=== PATIENT | male | born 1955 | race Caucasian/White ===

== ENCOUNTER 2020-01-21 19:36 | Observation (INO) | payer OTHER, SELFPAY ==
[2020-01-21 19:37] VITALS: BP 156/98; PULSE 70; RESP 16; TEMP 36.6; O2SAT 98; BMI 30.7
--- NOTE | 2020-01-21 20:24 | CT_ITS ---
STUDY: CT ABDOMEN AND PELVIS WITHOUT CONTRAST REASON FOR EXAM: Male, 64 years old. Left flank pain RADIATION DOSAGE (If Supplied By Facility): CTDIvol = ( 16.81 ) mGy, DLP = ( 982.68 ) mGycm TECHNIQUE: Transaxial images were obtained from the dome of the diaphragm to the symphysis pubis without oral contrast, and without intravenous contrast. Sagittal and coronal images were reconstructed. Individualized dose optimization techniques were used for this CT. COMPARISON: None. FINDINGS: Evaluation of the abdominal viscera is limited in the absence of intravenous contrast. There is atelectasis at the lung bases. The visualized portions of the heart and pericardium are within normal limits. There are no calcified gallstones present. The liver is low in density, consistent with fatty infiltration. The spleen is normal in size. The pancreas demonstrates an unremarkable unenhanced appearance. The adrenal glands are within normal limits. There is a 5 mm stone in the left mid ureter with severe left hydronephrosis. There are bilateral subcentimeter nonobstructing renal collecting system stones. There are multiple cystic structures in the right renal hilum which likely represent parapelvic cysts. However, right-sided hydronephrosis cannot be excluded without a contrast-enhanced study and delayed images. Normal visualized stomach. There is no bowel obstruction or inflammation. The appendix is not visualized, but there are no findings to suggest acute appendicitis. The aorta is normal in caliber. There are atherosclerotic calcifications noted in the aorta and its branches. There is no abdominal or pelvic free air, free fluid, fluid collection or lymphadenopathy. There are no destructive osseous lesions. There are degenerative changes noted in the spine. CT/Abdomen/Pelvis without Cont IMPRESSION: 5 mm stone in the left mid ureter with severe left hydronephrosis. Multiple cystic structures in the right renal hilum which likely represent parapelvic cysts. However, right-sided hydronephrosis cannot be excluded without a contrast-enhanced study and delayed images. Fatty liver. Electronically Signed: Piotr Mccormick, at 21:03 EDT Tel , Service support ,
[2020-01-21 20:32] LABS: Absolute Lymphocyte Count 2.14 X10^3/uL (0.83-4.51); Absolute Neutrophil Count 9.7 X10^3/uL (2.0-7.7); Basophil# 0.05 X10^3/uL; Basophil% 0.4 % (0-1); Eosinophil# 0.49 X10^3/uL; Eosinophils% 3.6 % (0-5); Hematocrit 49.5 % (40-54); Hemoglobin 17.4 g/dL (13.0-16.5); Lymphocyte # 2.14 X10^3/ul (4.0); Lymphocyte % 15.7 % (19-41); Mean Corp Hgb Conc 35.2 g/dL (32-36); Mean Corpuscular Hgb 35.4 pg (27.0-32.0); Mean Corpuscular Volume 100.6 fL (80-94); Mean Platelet Vol. 11.8 fl (6.2-12.0); Monocyte# 1.21 X10^3/uL; Monocyte% 8.9 % (0-10); NRBC Flagged by Analyzer 0 % (0-5); Neutrophil # 9.72 X10^3/uL (2.7-7.7); Platelet Count 237 K/mm3 (150-450); RBC Distribution Width CV 13.2 % (11.6-14.6); RBC Distribution Width SD 48.4 fl (35.1-43.9); Red Blood Count 4.92 M/mm3 (4.6-6.2); White Blood Count 13.7 K/mm3 (4.4-11.0)
[2020-01-21] MEDS: 0.9% Normal Saline 1,000 ML 250 ML IV (20:32)
[2020-01-21] MEDS: Morphine 4 MG/ML Syringe IV (20:32)
[2020-01-21] MEDS: Ondansetron 4 MG/2 ML Vial IV (20:32)
[2020-01-21 20:34] LABS: Bacteria 0 SEEN /hpf (None Seen); Mucous, Urine 0 SEEN /hpf (<or=2+); Red Blood Cells-Urine 0 SEEN /hpf (0-5); Squamous Epithelial Cells - UA 0 SEEN /hpf (0-5); White Blood Cells 0 SEEN /hpf (0-5)
[2020-01-21 20:36] LABS: Color, Urine Yellow (Yellow); Glucose, Dipstick Normal (Normal); Ketone-Dipstick Negative (Negative); Leukocyte Esterase-Dipstick Negative /ul (Negative); Nitrite-Dipstick Negative (Negative); Occult Blood-Urine 25 /ul (Negative); Protein-Dipstick Negative (Negative); Specific Gravity, Urine 1.005 (1.002-1.030); Urine Bilirubin Dipstick Negative (Negative); Urine Clarity Clear (Clear); Urine Urobilinogen Normal (Normal)
[2020-01-21 20:43] LABS: Anion Gap 8 (5-15); BUN 15 mg/dL (7-18); BUN/Creat Ratio 10.5 RATIO (10-20); Calcium,Total 9.8 mg/dL (8.5-10.1); Chloride 102 mmol/L (98-107); Creatinine, Serum 1.43 mg/dL (0.70-1.30); EST Glomerular Filtration Rate 53 mL/min (>60); Est Glom Filt Rate - Afr Amer 64 mL/min (>60); Estimated Creatinine Clearance 55.58 ml/min; Glucose 99 mg/dL (74-106); Potassium 4.7 mmol/L (3.5-5.1); Sodium Level 136 mmol/L (136-145)
--- NOTE | 2020-01-21 21:30 | ED.DCSUM_ITS ---
History of Present Illness Chief Complaint: Flank Pain Informant: Patient Onset: Today Context: Gradual Onset Timing: Continuous, Waxes and wanes Narrative: Patient is a 64-year-old male with history of kidney stones requiring lithotripsy, hyperlipidemia, gout and [id number] diabetes mellitus presenting with left-sided flank pain. Patient states that started today. He states it is constant but wax and wanes in intensity. He states it is in his left flank but radiates to his abdomen. Started on 1 PM today. Feels like his prior kidney stones. He took Tylenol at 1 PM with no significant relief of his symptoms. He has associated nausea but no vomiting. He has been trying to drink more water to help with his symptoms. Patient denies any other complaints at this time. Past Medical History - Allergies and Home Meds Allergies/Adverse Reactions: Allergies No Known Allergies Allergy (Verified 01/21/20 19:37) Past Medical History: - - Diabetes mellitus, hyperlipidemia, gout, kidney stones, history of renal cyst Surgical History: - - Lithotripsy with stent Smoking Status: Never smoker - Family History Maternal Family History: Reports: No pertinent history Review of Systems General: Denies: Chills, Fever, Sweats Eyes: Denies: Visual changes - bilaterally, Diplopia ENT: Denies: Rhinorrhea, Sore throat Cardiovascular: Denies: Chest pain, Palpitations Respiratory: Denies: Dyspnea, Cough, Dyspnea on exertion Gastrointestinal: Reports: Abdominal pain - Left flank, Nausea. Denies: Vomiting, Diarrhea, Melena, Hematochezia Genitourinary: Denies: Dysuria, Hematuria, Frequency Musculoskeletal: Denies: Back pain, Extremity Pain Skin: Denies: Rash, Wounds Neurological: Denies: Headache, Weakness, Numbness Physical Exam Vital Signs/Narrative: Vital Signs Temp Pulse Resp BP Pulse Ox 01/21/20 19:37 97.8 F 70 16 156/98 H 98 Inital Vital Signs reviewed: Yes General: Well nourished, Well developed, No Acute Distress Head: Normocephalic, Atraumatic Eyes: Perrl, EOMI ENT: Moist mucous membranes, No rhinorrhea Neck: Supple, Nontender Cardiovascular: Regular rate, Regular rhythm, No murmurs Respiratory: No distress, CTA bilaterally, Chest nontender Abdomen: Soft, Nontender, Nondistended, Normal bowel sounds. Negative for: Guarding, Rebound tenderness Back: Nontender, Normal Inspection. Negative for: CVA tenderness, Spinal tenderness Extremities: Nontender, No edema Skin: Normal color, No rash Neurological: Alert, Oriented x3, Cranial nerves II-XII grossly intact, Normal Strength, Normal Sensation Psychological: Normal affect, Normal Mood Diagnostic/Tx/Re-eval Clinical Impression(s) from Imaging Studies Abdomen/Pelvis CT 01/21/20 20:24 IMPRESSION: 5 mm stone in the left mid ureter with severe left hydronephrosis. Multiple cystic structures in the right renal hilum which likely represent parapelvic cysts. However, right-sided hydronephrosis cannot be excluded without a contrast-enhanced study and delayed images. Fatty liver. Electronically Signed: Piotr Damonlaura, at 21:03 EDT Tel , Service support , Laboratory Data 01/21/20 01/21/20 01/21/20 19:50 19:50 19:50 WBC 13.7 H RBC 4.92 Hgb 17.4 H Hct 49.5 MCV 100.6 H MCH 35.4 H MCHC 35.2 RDW Std Deviation 48.4 H RDW Coeff of Teresita 13.2 Plt Count 237 MPV 11.8 Immature Gran % (Auto) 0.400 Neut % (Auto) 71.0 H Lymph % (Auto) 15.7 L [place] % (Auto) 8.9 Eos % (Auto) 3.6 Baso % (Auto) 0.4 Absolute Neuts (auto) 9.7 H Absolute Lymphs (auto) 2.14 Nucleated RBC % 0 Sodium 136 Potassium 4.7 Chloride 102 Carbon Dioxide 26.0 Anion Gap 8 BUN 15 Creatinine 1.43 H Estim Creat Clear Calc 55.58 Est GFR (MDRD) Af Amer 64 Est GFR (MDRD) Non-Af 53 L BUN/Creatinine Ratio 10.5 Glucose 99 Calcium 9.8 Urine Color Yellow Urine Clarity Clear Urine pH 6.0 Ur Specific [place] 1.005 Urine Protein Negative Urine Glucose (UA) Normal Urine Ketones Negative Urine Occult Blood 25 H Urine Nitrite Negative Urine Bilirubin Negative Urine Urobilinogen Normal Ur Leukocyte Esterase Negative Urine RBC 0 SEEN Urine WBC 0 SEEN Ur Squamous Epith Cells 0 SEEN Urine Bacteria 0 SEEN Urine Mucus 0 SEEN - Medical Decision Making Patient is evaluated for 1 day of left-sided flank pain. He appears nontoxic and is hemodynamically stable. Physical exam is quite benign. Patient's creatinine is mildly elevated at 1.43 and he has a leukocytosis of 13.7 as well as a hemoglobin of 17.4. Patient is given IV fluids and, morphine and Zofran in the emergency room. Patient is not given Toradol as he is already on daily meloxicam and took a dose of that today. Patient's creatinine does seem to be above his baseline. His lab work in the fall had a creatinine of 0.98 per his [employer] nacho. Patient also was found to have significant hydronephrosis on the left side. Even his severe hydronephrosis as well as his DANIEL I do believe patient benefit from admission. Case is discussed with urology on-call, Dr. Cintron who accepts admission. Patient is agreeable with plan. He is given Percocet in the ER for further pain control. ED Disposition - Plan for ED Patient: Disposition: Acute Care Hospital [facility] Diagnosis: Acute renal insufficiency, Hydronephrosis, left, Left ureteral calculus
[2020-01-21 21:41] VITALS: BP 145/87; PULSE 68; RESP 16; TEMP 36.6; O2SAT 98
--- NOTE | 2020-01-21 21:48 | HP.PCM_ITS ---
Problem List (1) Left ureteral calculus Status: Acute Comment: 5mm stone in proximal ureter (2) Hydronephrosis, left Status: Acute Comment: hydro, high grade obstruction (3) Acute renal insufficiency Status: Acute Comment: acute worsning of renal funciton. History of Present Illness Date of Admission: 01/21/20 Chief Complaint: left flank pain The patient is a 64 year old male presented with ER with obstruction from a left kidney stone will admit for pain control, + flank pain, Creatinine rising because of blockage. no fevers or chills WBC slighly up, but no signs of sepsis, vitals stable. Past Medical History Allergies No Known Allergies Allergy (Verified 01/21/20 19:37) Surgical History: no surgical history, - - Lithotripsy with stent Psychiatric History: No pertinent psych hx Lives: With Family Smoking Status: Never smoker Tobacco Use: Non-smoker Alcohol: None Drugs: None - *Family History Maternal History Items: No pertinent history Review of Systems Constitutional: Denies: Chills, Fever, Weight Change HEENT: Denies: Head Aches, Sinus Congestion, Sinus Drainage Cardiovascular: Denies: Chest Pain, Palpitations Respiratory: Denies: Cough, Shortness of breath at rest, Sputum production Gastrointestinal: Reports: Abdominal Pain. Denies: Nausea, Vomiting Genitourinary: Reports: Hematuria. Denies: Dysuria Musculoskeletal: Denies: Joint Pain, Joint Tenderness Skin: Denies: Rash, Wounds Neurological: Denies: Numbness, Tingling, Focal weakness Psychiatric: Denies: Anxiety, Depression, Homicidal Ideations, Suicidal Ideations Hematologic/ Lymphatic: Denies: Easy Bruising, Easy Bleeding VTE Information - Inpt Only VTE Present on Admission: No VTE Mechan Device Prophylaxis: SCD's Patient Problems: Active and Suspected Problems Left ureteral calculus (Acute) 5mm stone in proximal ureter Hydronephrosis, left (Acute) hydro, high grade obstruction Acute renal insufficiency (Acute) acute worsning of renal funciton. - Physical Exam Vitals/I&O's: Vital Signs Temp Pulse Resp BP Pulse Ox 97.8 F 70 16 156/98 H 98 01/21/20 19:37 01/21/20 19:37 01/21/20 19:37 01/21/20 19:37 01/21/20 19:37 Oxygen Delivery Method Room Air Weight: 99.79 kg Body Mass Index (BMI) 30.7 General: Alert, Oriented x3, Cooperative HEENT: Atraumatic, PERRLA, EOMI, Normocephalic Neck: Supple, No JVD, Negative Carotid Bruits Lungs: Clear to auscultation, Normal air movement Cardiovascular: Regular rate, No murmurs Abdomen: Bowel Sounds Present, Soft, Non Tender Extremities: No edema, Capillary Refill Less than 3 Seconds Skin: No rashes, No breakdown Musculoskeletal: No Tenderness to Palpation of Joints or Extremities Neurological: Cranial nerves II-XII grossly intact Psych/Mental Status: Normal Affect, Appropriate Laboratory Results 01/21/20 19:50: WBC 13.7 H, RBC 4.92, Hgb 17.4 H, Hct 49.5, MCV 100.6 H, MCH 35.4 H, MCHC 35.2, RDW Std Deviation 48.4 H, RDW Coeff of Teresita 13.2, Plt Count 237, MPV 11.8, Immature Gran % (Auto) 0.400, Neut % (Auto) 71.0 H, Lymph % (Auto) 15.7 L, [place] % (Auto) 8.9, Eos % (Auto) 3.6, Baso % (Auto) 0.4, Absolute Neuts (auto) 9.7 H, Absolute Lymphs (auto) 2.14, Nucleated RBC % 0 01/21/20 19:50: Sodium 136, Potassium 4.7, Chloride 102, Carbon Dioxide 26.0, Anion Gap 8, BUN 15, Creatinine 1.43 H, Estim Creat Clear Calc 55.58, Est GFR (M DRD) Af Amer 64, Est GFR (MDRD) Non-Af 53 L, BUN/Creatinine Ratio 10.5, Glucose 99, Calcium 9.8 01/21/20 19:50: Urine Color Yellow, Urine Clarity Clear, Urine pH 6.0, Ur Specific [place] 1.005, Urine Protein Negative, Urine Glucose (UA) Normal, Urine Ketones Negative, Urine Occult Blood 25 H, Urine Nitrite Negative, Urine B ilirubin Negative, Urine Urobilinogen Normal, Ur Leukocyte Esterase Negative, Urine RBC 0 SEEN, Urine WBC 0 SEEN, Ur Squamous Epith Cells 0 SEEN, Urine Bacteria 0 SEEN, Urine Mucus 0 SEEN Current Medications Al Hydroxide/Mg Hydroxide (Mylanta Ii) 30 ml PO Q6H PRN PRN PRN Reason: Gastric Burning Dextrose (D50w Syringe) 0 gm IV X1 PRN; Protocol PRN Reason: Hypoglycemia Famotidine (Pepcid) 20 mg PO BID JOELLEN Glucagon () 1 mg IM .X1 PRN PRN Reason: Hypoglycemia Hydromorphone HCl (Dilaudid Inj) 0.5 mg IV Q4H PRN PRN PRN Reason: Pain Score 6-10/10 Sodium Chloride () 1,000 mls @ 250 mls/hr IV .Q4H [facility] Last Admin: 01/21/20 20:32 Dose: 250 mls/hr Documented by: Sodium Chloride () 1,000 mls @ 125 mls/hr IV .Q8H [facility] Cefazolin Sodium () 1 gm in 50 mls @ 100 mls/hr IV Q8 [facility] Stop: 01/26/20 22:01 Ondansetron HCl (Zofran) 4 mg IV Q8H PRN PRN PRN Reason: NAUSEA/VOMITING Oxycodone HCl (Oxyir) 10 mg PO Q4H PRN PRN PRN Reason: Pain Score 4-5/10 Prochlorperazine Edisylate (Compazine Iv) 5 mg IV Q4H PRN PRN PRN Reason: Breakthrough nausea/vomiting Temazepam (Restoril) 15 mg PO QHS PRN PRN PRN Reason: INSOMNIA Assessment/Plan All Active Problems Left ureteral calculus (Acute) Hydronephrosis, left (Acute) Acute renal insufficiency (Acute) admit to hospital pain control NPO at midnight hold all meds for now KUB in am plan for stent and ESWL.
[2020-01-21] MEDS: oxyCODONE 5 MG Tablet PO (21:56)
[2020-01-21 22:45] VITALS: BP 137/74; PULSE 73; RESP 18; TEMP 36.8; O2SAT 97
[2020-01-21 22:59] VITALS: BMI 30.7; BMI 31.6
[2020-01-21] MEDS: 0.9% Normal Saline 1,000 ML 125 ML IV (23:22)
[2020-01-21] MEDS: Famotidine 20 MG Tablet PO (23:32)
[2020-01-22] VITALS (7 sets, daily range): BP systolic 102–150; BP diastolic 65–93; PULSE 51–74; RESP 16–18; TEMP 36.3–36.7; O2SAT 93–98; BMI 31.4; BMI 30.7
[2020-01-22] MEDS: Cefazolin 1 GM/50 ML BAG IV ×3 (00:07→13:55)
[2020-01-22] MEDS: oxyCODONE 5 MG Tablet 10 MG PO (01:09)
--- NOTE | 2020-01-22 05:55 | EKG12_ITS ---
Test Reason : PRE-OP Blood Pressure : / mmHG Vent. Rate : 051 BPM Atrial Rate : 051 BPM P-R Int : 176 ms QRS Dur : 096 ms QT Int : 438 ms P-R-T Axes : 049 014 035 degrees QTc Int : 403 ms Sinus bradycardia Nonspecific T wave abnormality Abnormal ECG No previous ECGs available Confirmed by ANNY BERMUDEZ, KRISTIAN ([id number]), map editor BLUE HO ([id number]) on 01/27/2020 9:55:48 AM Referred By: Francis Figueredo Confirmed By:CODY MCCORMICK MD
[2020-01-22 06:30] LABS: Bedside Glucose 121 mg/dL (70-110)
[2020-01-22 06:54] LABS: Absolute Lymphocyte Count 1.52 X10^3/uL (0.83-4.51); Absolute Neutrophil Count 5.4 X10^3/uL (2.0-7.7); Basophil# 0.03 X10^3/uL; Basophil% 0.4 % (0-1); Eosinophil# 0.36 X10^3/uL; Eosinophils% 4.4 % (0-5); Hematocrit 45.6 % (40-54); Hemoglobin 15.5 g/dL (13.0-16.5); Lymphocyte # 1.52 X10^3/ul (4.0); Lymphocyte % 18.4 % (19-41); Mean Corpuscular Hgb 35.1 pg (27.0-32.0); Mean Corpuscular Volume 103.2 fL (80-94); Mean Platelet Vol. 9.9 fl (6.2-12.0); Monocyte% 10.9 % (0-10); NRBC Flagged by Analyzer 0 % (0-5); Neutrophil # 5.41 X10^3/uL (2.7-7.7); Neutrophil % 65.7 % (47-70); Platelet Count 181 K/mm3 (150-450); RBC Distribution Width CV 13.4 % (11.6-14.6); RBC Distribution Width SD 51.2 fl (35.1-43.9); Red Blood Count 4.42 M/mm3 (4.6-6.2); White Blood Count 8.2 K/mm3 (4.4-11.0)
--- NOTE | 2020-01-22 07:00 | RAD_ITS ---
STUDY: X-RAY - ABDOMEN/PELVIS REASON FOR EXAM: Male, 64 years old. Abdomen and TECHNIQUE: Two AP supine views of the abdomen and pelvis. COMPARISON: None. FINDINGS: Normal visualized lung bases. There is an unremarkable bowel gas pattern. There is no demonstrated free abdominal air. The visualized liver, spleen and kidneys are grossly normal in size and morphology. Normal soft tissue structures. There are diffuse degenerative changes of the visualized lumbar spine. RAD/Abdomen Single View IMPRESSION: Normal x-ray examination of the abdomen and pelvis. Electronically Signed: Apple Grubbs, at 7:58 EDT Tel , Service support ,
[2020-01-22 07:19] LABS: Anion Gap 7 (5-15); BUN 12 mg/dL (7-18); BUN/Creat Ratio 10.5 RATIO (10-20); Calcium,Total 8.8 mg/dL (8.5-10.1); Chloride 102 mmol/L (98-107); Creatinine, Serum 1.14 mg/dL (0.70-1.30); EST Glomerular Filtration Rate 69 mL/min (>60); Est Glom Filt Rate - Afr Amer 83 mL/min (>60); Estimated Creatinine Clearance 69.72 ml/min; Glucose 120 mg/dL (74-106); Potassium 4.2 mmol/L (3.5-5.1); Sodium Level 135 mmol/L (136-145)
[2020-01-22] MEDS: 0.9% Saline Lock 10 ML Syringe IV (07:19)
[2020-01-22] MEDS: Ondansetron 4 MG/2 ML Vial IV (07:19)
[2020-01-22 07:59] LABS: Hemoglobin A1c 5.7 % (3.8-5.6)
[2020-01-22] MEDS: 0.9% Normal Saline 1,000 ML 125 ML IV ×2 (09:04→17:29)
[2020-01-22 11:10] LABS: Bedside Glucose 113 mg/dL (70-110)
--- NOTE | 2020-01-22 15:01 | PCM.DC.URO ---
Discharge Diet: No Restrictions, Light diet - advance as tolerated Discharge Activity: Return to Normal Activity, May Not Drive - for 2 days., May not drive while taking narcotic pain medications. Additional Activity Instructions:: Please be aware that pain medications may cause nausea. You should typically eat light foods as you take your pain medication. Pain medication may cause constipation, if this is a problem for you, please discuss with your doctor. Instructions: Shock Wave Lithotripsy Allergies/Adverse Reactions: Allergies No Known Allergies Allergy (Verified 01/21/20 19:37) Medications to take at Discharge Allopurinol 300 mg PO DAILY 01/21/20 Atorvastatin Calcium 10 mg PO DAILY 01/21/20 Docusate Sodium [Colace] 200 mg PO BID 01/21/20 Loratadine 10 mg PO DAILY 01/21/20 Meloxicam 15 mg PO DAILY 01/21/20 metFORMIN HCl [Glucophage] 500 mg PO TID 01/21/20 Cephalexin [Keflex] 500 mg PO TID #15 cap 01/22/20 Hydrocodone/Acetaminophen [Post 5-325 Tablet] 1 each PO Q4H PRN PRN 5 Days #14 tablet 01/22/20 The following prescriptions were given: Cephalexin [Keflex] 500 mg PO TID #15 cap Transmission Status: Pending to [facility] [id number] Hydrocodone/Acetaminophen [Post 5-325 Tablet] 1 each PO Q4H PRN PRN 5 Days #14 tablet PRN Reason: Pain Score 1-10/10 Transmission Status: Received by [facility] [address] [place] [address] Primary Care Physician: Kita Melendez MD [Primary Care Provider] - Test Results: Test results from this visit will be discussed in further detail at your follow-up appointment, if applicable. Please Follow Up With: Francis Figueredo MD - [phone] When: please call to make an appointment.
[2020-01-22] MEDS: Lactated Ringers 1,000 ML 100 ML IV (16:00)
--- NOTE | 2020-01-22 16:06 | PCM.OPRPT ---
Problem List (1) Left ureteral calculus Status: Acute Comment: 5mm stone in proximal ureter (2) Hydronephrosis, left Status: Acute Comment: hydro, high grade obstruction (3) Acute renal insufficiency Status: Acute Comment: acute worsning of renal funciton. Report of Operation Date of Procedure: 01/22/20 Pre-Operative Diagnosis: Left proximal ureteral calculi Post-Operative Diagnosis: Same Surgery/Procedure Performed:: Cystoscopy left stent placement and left extracorporeal shockwave lithotripsy Description of Surgical Findings:: 64-year-old male presents the hospital with obstructing stone in the proximal left ureter and admitted to hospital for pain control he is now taken to surgery today for treatment of the stone and also can place a stent. After induction of anesthesia he was placed supine on the table in dorsolithotomy position we found the stone in the lower pole of the left kidney had migrated back performed a retrograde pyelogram could see no stone along the course of the ureter we did go into the bladder with the cystoscope we cannulated the left ureteral orifice advanced a wire up into the kidney over the wire place a stent that we located the stone in the lower pole the left kidney. The stone had moved back from the proximal ureter back to the kidney. We then treated the stone with shockwave lithotripsy 3000 shockwaves were delivered to the stone at a rate of 90/min from 5 to 7 kV we monitor the stone during the treatment at the end of the treatment cycle appeared to be a complete fragmentation. Plan to see him next week with an x-ray and will get the stent out. Type of Anesthesia:: General Drains: stent left side - Admit VTE Documentation VTE Present on Admission: No VTE Mechan Device Prophylaxis: SCD's
[2020-01-22 16:45] LABS: Bedside Glucose 77 mg/dL (70-110)
== END 2020-01-22 18:53 | disposition home or self-care (01) ==
LOC: ED 20:22 → MS3 23:23
PROVIDERS: Anesthesiology; Admitting Provider Urology; Emergency Provider Emergency Medicine; PCP Internal Medicine; Referring Provider Urology; Visit Provider Urology
PROC: (CPT 50590; principal; 2020-01-22 15:30)
DX: N13.2 Hydronephrosis with renal and ureteral calculous obstruction (principal); E78.5 Hyperlipidemia, unspecified; E11.9 Type 2 diabetes mellitus without complications; M10.9 Gout, unspecified; Z79.899 Other long term (current) drug therapy; Z79.84 Long term (current) use of oral hypoglycemic drugs; Z87.442 Personal history of urinary calculi; G47.30 Sleep apnea, unspecified
CPT/HCPCS: 50590; 52332; 36415; 74018; 74176; 80048; 81001; 82962; 83036; 85025; 87635; 93005; 96361; 96365; 96366; 96375; 96376; 99218; 99284; G2023; J7030; J7120; A4216; C1769; C2617; G0378; J2405; U0003

== ENCOUNTER → 2020-01-28 14:58 | Outpatient (CLI) | payer OTHER, SELFPAY ==
[2020-01-22 13:00] VITALS: BMI 31.4
--- NOTE | 2020-01-28 15:15 | RAD_ITS ---
HISTORY: KIDNEY STONE F/U, URINARY URGENCY PER PT ADDITIONAL HISTORY: None. COMPARISON: 01/22/2020. CT 01/21/2020 Technique: Supine abdominal radiograph(s) Number of images including paperwork: 2 FINDINGS: FREE AIR: None detected. BOWEL GAS PATTERN: Nonobstructive. CALCIFICATIONS: No definite urinary tract calculi. Left ureteral calculus no longer evident. ORGANS: No evidence of organomegaly. Gastric distention. SOFT TISSUES: Unremarkable. BONES: No acute skeletal findings. Degenerative changes. DEVICES: Left ureteral stent in place. RAD/Abdomen Single View IMPRESSION: No acute abdominal abnormality is radiographically apparent. at 0604 Reported and signed by: Consuelo Yeung MD Electronically Signed: Consuelo Yeung MD at 6:04 EDT Tel , Service support ,
== END ==
PROVIDERS: PCP Internal Medicine; Referring Provider Urology; Visit Provider Urology
DX: N20.0 Calculus of kidney (principal)
CPT/HCPCS: 74018

== ENCOUNTER 2020-10-08 06:49 | Outpatient (RCR) | payer MEDICARE, SELFPAY ==
[2020-01-22 13:00] VITALS: BMI 31.4
[2020-10-08] MEDS: COVID-19 VACC, MRNA(PFIZER)/PF 30 MCG/0.3 ML SYRINGE IM (18:00)
[2020-10-29] MEDS: COVID-19 VACC, MRNA(PFIZER)/PF 30 MCG/0.3 ML SYRINGE IM (17:25)
== END 2021-01-12 23:59 ==
LOC: IMMUN 06:49
PROVIDERS: PCP Internal Medicine; Visit Provider Family Medicine
DX: Z23 Encounter for immunization (principal)
CPT/HCPCS: 0001A; 0002A; 91300

== ENCOUNTER → 2021-03-18 14:08 | Outpatient (CLI) | payer MEDICARE, SELFPAY ==
[2020-01-22 13:00] VITALS: BMI 31.4
[2021-03-18 16:38] LABS: PSA,Total - Annual Screen 0.56 ng/mL (0.00-4.00)
== END ==
PROVIDERS: PCP Internal Medicine; Visit Provider Nurse Practitioner Adult Health
DX: Z12.5 Encounter for screening for malignant neoplasm of prostate (principal)
CPT/HCPCS: 36415; 84153; G0103

== ENCOUNTER → 2021-03-26 07:15 | Outpatient (CLI) | payer MEDICARE, SELFPAY ==
[2020-01-22 13:00] VITALS: BMI 31.4
--- NOTE | 2021-03-26 07:19 | CT_ITS ---
STUDY: CT ABDOMEN AND PELVIS WITHOUT CONTRAST REASON FOR EXAM: Male, 65 years old. ASYMPTOMATIC MICROSCOPIC HEMATURIA,HO URINARY CALCULI RADIATION DOSAGE (If Supplied By Facility): CTDIvol = ( 18.11 ) mGy, DLP = ( 972.97 ) mGycm TECHNIQUE: Transaxial images were obtained from the dome of the diaphragm to the symphysis pubis without oral contrast, and without intravenous contrast. Sagittal and coronal images were reconstructed. Individualized dose optimization techniques were used for this CT. COMPARISON: 01/21/2020 FINDINGS: The study is limited due to lack of intravenous contrast. Minimal bibasilar dependent atelectasis. Coronary artery calcifications. Marked diffuse hepatic steatosis. Tiny layering stones in the gallbladder. Unremarkable spleen, pancreas, and adrenals. Multiple bilateral parapelvic renal cysts. A few adjacent nonobstructing stones in the right renal pelvis measuring up to 0.3 cm. No additional radiopaque urolithiasis on either side. Normal appendix. Moderate amount of retained stool throughout the colon with no evidence of bowel obstruction. Colonic diverticulosis. No acute diverticulitis. No free air or free fluid. No adenopathy. Vascular calcification with no abdominal aortic aneurysm. Sections through the pelvis demonstrate a mildly enlarged prostate gland. Correlation with rectal examination and serum PSA levels is recommended. The urinary bladder is incompletely distended. Multilevel thoracolumbar spondylosis is seen. 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 CT/Abdomen/Pelvis without Cont IMPRESSION: Limited study due to lack of intravenous contrast. A few tiny adjacent stones in the right kidney. No radiopaque stone in the left kidney, bilateral ureters, and the urinary bladder. No hydroureteronephrosis on either side. Mildly enlarged prostate. Correlation with rectal examination and serum PSA levels is recommended. Marked diffuse hepatic steatosis. Cholelithiasis. Colonic diverticulosis. Electronically Signed: Kartik Gr MD at 14:52 EDT Tel , Service support ,
== END ==
PROVIDERS: PCP Internal Medicine; Referring Provider Nurse Practitioner Adult Health; Visit Provider Nurse Practitioner Adult Health
DX: R31.21 Asymptomatic microscopic hematuria (principal); Z87.442 Personal history of urinary calculi
CPT/HCPCS: 74176

== ENCOUNTER 2024-03-18 07:06 | Observation (INO) | payer MEDICARE, SELFPAY ==
[2024-03-18] VITALS (15 sets, daily range): BP systolic 98–178; BP diastolic 58–98; PULSE 60–91; RESP 15–19; TEMP 35.9–36.9; O2SAT 93–100; BMI 31.2; BMI 31.3
--- NOTE | 2024-03-18 07:28 | CT_ITS ---
STUDY: CT ABDOMEN AND PELVIS WITHOUT CONTRAST REASON FOR EXAM: Male, 68 years old. Kidney Stone - Right RADIATION DOSAGE (If Supplied By Facility): CTDIvol = ( 19.5 ) mGy, DLP = ( 1284.45 ) mGycm TECHNIQUE: Transaxial images were obtained from the dome of the diaphragm to the symphysis pubis without oral contrast, and without intravenous contrast. Sagittal and coronal images were reconstructed. Individualized dose optimization techniques were used for this CT. COMPARISON: Comparison is made with prior study March 26, 2021. FINDINGS: Stable increased markings at the lung bases slightly more prominent at the left base. This may represent scarring. Coronary artery calcification. There is decreased attenuation of the liver consistent with steatosis. Normal gallbladder and extrahepatic biliary system. Normal spleen. Normal pancreas. Normal bilateral adrenal glands. Stable multiple right parapelvic renal cysts. There is a 6.2 mm calculus at the right ureteral pelvic junction causing superimposed right hydronephrosis. Punctate nonobstructive calculus in the posterior upper pole calyx of the right kidney as well as a 2 mm calculus in the right renal pelvis. Stable left parapelvic renal cysts. Nonobstructive calculi in the left kidney the largest measures 6 mm and is in the lower pole. There is nonspecific bilateral perinephric stranding more prominent on the right side. Normal visualized stomach. Normal small intestine. There are multiple colonic diverticula consistent with diverticulosis. The appendix is visualized and appears normal. There is atherosclerotic calcification of the abdominal aorta and its major visceral branches, without a demonstrated aneurysm. Normal inferior vena cava. Normal retroperitoneum. Normal urinary bladder. There are prostatic calcifications. Normal abdominal wall. There are diffuse degenerative changes of the visualized lumbar spine. Straightening of the normal cervical lordosis. CT/Abdomen/Pelvis without Cont IMPRESSION: [id number] right hydronephrosis due to a 6.2 mm calculus in the right ureteropelvic junction. Stable bilateral nonobstructive intrarenal calculi. Stable bilateral parapelvic renal cysts more prominent on the right side. Diffuse fatty infiltration of the liver. Electronically Signed: Pan Cardneas MD at 8:59 EDT ,
--- NOTE | 2024-03-18 07:29 | EX.ED.DYSGE1 ---
HPI History of Present Illness Chief Complaint: Abd Pain Informant: patient and spouse/S.O. Narrative Narrative: 68-year-old male presenting to the emergency room with right-sided abdominal pain. Patient states symptoms began last evening around 1700 hrs. constant. He notes intermittent nausea. Patient denies any fever or diarrhea. He notes he is urinating less. He denies any prior abdominal surgeries. He notes a history of kidney stone. The patient states that he is on allopurinol due to high uric acid levels in the urine. This was found while evaluating pain he had on the right side which was felt to be due to possibly a passed kidney stone. No reported rashes. No testicular/penile pain. No dysuria. PFSH PFSH Home Medications ?Medication ?Instructions ?Recorded ?Last Taken ?Type allopurinol 300 mg tablet 300 mg PO DAILY 01/21/20 Unknown History atorvastatin 10 mg tablet 10 mg PO DAILY 01/21/20 Unknown History docusate sodium 100 mg capsule 200 mg PO BID 01/21/20 Unknown History loratadine 10 mg capsule 10 mg PO DAILY 01/21/20 Unknown History meloxicam 15 mg tablet 15 mg PO DAILY 01/21/20 Unknown History metformin 500 mg tablet 500 mg PO TID 01/21/20 Unknown History cephalexin 500 mg capsule 500 mg PO TID #15 caps 01/22/20 Unknown Rx Allergy/AdvReac Type Severity Reaction Status Date / Time No Known Allergies Allergy Verified 03/18/24 07:07 Social History Smoking Status: Never smoker ROS ROS ED Constitutional Constitutional ED: Denies chills, fever(s) or weight loss Eyes Eyes: Denies change in vision or diplopia ENT ENT ED: Denies ear pain, rhinorrhea or sore throat Cardiovascular Cardiovascular: Denies chest pain, orthopnea, palpitations or racing heartbeat Respiratory/Chest Respiratory/Chest: Denies cough, dyspnea or orthopnea Gastrointestinal Gastrointestinal: Reports abdominal pain and nausea; Denies diarrhea or vomiting Genitourinary Genitourinary ED: Denies dysuria, hematuria or urinary frequency Musculoskeletal Musculoskeletal: Denies arthralgias, myalgias or neck pain Integumentary Denies abscess or rash Neurologic Neurologic: Denies headache(s) or weakness Psychiatric Psychiatric: Denies anxiety, depression, suicidal ideation or suicidal thoughts Endocrine Endocrinology: Denies polydipsia, polyphagia or polyuria Allergic/Immunologic Allergic/Immunologic ED: Denies mouth swelling, tongue swelling or urticaria EXAM Physical Exam Const Vital Signs: 03/18/24 07:07 03/18/24 09:06 03/18/24 10:13 Temperature 96.6 F L 98 F Temperature Source Temporal Pulse Rate 75 91 78 Respiratory Rate 16 19 H 19 H Blood Pressure 158/91 H 178/98 H 152/90 H Blood Pressure Mean 113 124 110 Pulse Ox 99 97 97 Oxygen Delivery Method Room Air Room Air Positive well nourished and well developed General Appearance ED: well developed HEENT Reports normocephalic, head/scalp atraumatic and moist mucous membranes Eyes PERRL and EOMs intact bilaterally Neck no lymphadenopathy, supple and no JVD Resp normal respiratory effort and clear to auscultation bilaterally Cardio regular rate, regular rhythm and no murmurs GI non-distended Inspection: Negative for abdominal distention Auscultation: normoactive bowel sounds Palpation: soft and tender other (Patient reports tenderness to palpation laterally over the mid abdomen. No significant anterior pain.); Negative for rebound tenderness present Back/Spine no CVA tenderness and normal ROM Extremity normal to inspection General Extremety ED: Negative for edema General Extremity: Negative for edema Neuro oriented x3 and CN's II-XII intact bilaterally Sensorium / Orientation: alert Motor Exam: strength 5/5 throughout Psych mental status grossly normal Mood & Affect: Negative for depressed or tearful Skin no rashes or lesions noted and no wounds MDM MDM MDM Narrative Medical decision making narrative: Differential diagnosis includes appendicitis ureterolithiasis UTI/pyelonephritis colitis perforated viscus White count 14 hemoglobin 17.7 platelet count of 185. Sodium 131 potassium of 5.9 however there was moderate hemolysis noted. Creatinine 1.71 which is elevated off baseline. Lipase 106 AST 74 urinalysis no overt infection. CT abdomen pelvis demonstrates a proximal 6 mm ureteral stone with hydronephrosis. Patient received IV fluids as well as morphine and Toradol and Zofran. He was redosed with Zofran and later Dilaudid. I spoke with his urologist Dr. Figueredo. Plan is admission. History & Record Review Discussion w/independent historian: Patient and Family Additional record(s) reviewed:: Prior labs Lab Data Attestation: I reviewed the patient's lab results. Labs: Laboratory Results - last 24 hr 03/18/24 03/18/24 08:00 08:31 WBC 14.0 H RBC 5.01 Hgb 17.7 H Hct 51.0 MCV 101.8 H MCH 35.3 H MCHC 34.7 RDW Std Deviation 49.8 H RDW Coeff of Teresita 13.1 Plt Count 185 MPV 10.4 Immature Gran % (Auto) 0.400 Neut % (Auto) 81.4 H Lymph % (Auto) 9.1 L [place] % (Auto) 8.0 Eos % (Auto) 0.6 Baso % (Auto) 0.5 Absolute Neuts (auto) 11.4 H Absolute Lymphs (auto) 1.28 Nucleated RBC % 0 Sodium 131 L Potassium 5.9 H Chloride 100 Carbon Dioxide 25.0 Anion Gap 6 BUN 19 H Creatinine 1.71 H Estim Creat Clear Calc 50.19 Est GFR (MDRD) Af Amer 51 L Est GFR (MDRD) Non-Af 42 L BUN/Creatinine Ratio 11.1 Glucose 153 H Calcium 9.7 Total Bilirubin 1.00 Direct Bilirubin < 0.05 AST 74 H ALT 52 Alkaline Phosphatase 79 Total Protein 8.3 H Albumin 3.9 Globulin 4.4 H Lipase 106 H Urine Color Yellow Urine Clarity Clear Urine pH 6.0 Ur Specific [place] 1.015 Urine Protein 100 H Urine Glucose (UA) 100 H Urine Ketones Negative Urine Occult Blood 25 H Urine Nitrite Negative Urine Bilirubin Negative Urine Urobilinogen Normal Ur Leukocyte Esterase Negative Urine RBC 0-5 SEEN Urine WBC 0 SEEN Ur Squamous Epith Cells 0-5 SEEN Urine Bacteria 0 SEEN Urine Mucus 0 SEEN Radiography Diagnostic Testing: Clinical Impression(s) from Imaging Studies Abdomen/Pelvis CT 03/18/24 07:28 IMPRESSION: Dibe-ip-uyuqzadq right hydronephrosis due to a 6.2 mm calculus in the right ureteropelvic junction. Stable bilateral nonobstructive intrarenal calculi. Stable bilateral parapelvic renal cysts more prominent on the right side. Diffuse fatty infiltration of the liver. Electronically Signed: Pan Cardenas MD at 8:59 EDT , Management Discussion w/another healthcare provider: Digital Forensic Analyst (Dr. Figuereod) Discharge Plan Dx/Rx/DC Orders Clinical Impression: Calculus of proximal right ureter, Hydronephrosis, right, Abdominal pain Disposition Disposition: Acute Care Hospital [facility]
[2024-03-18] MEDS: 0.9% Normal Saline (1000mL) 1,000 ML 250 ML IV ×4 (07:53→20:52)
[2024-03-18] MEDS: Morphine 4 MG/ML Syringe IV (07:54)
[2024-03-18] MEDS: Ketorolac 15 MG/ML Vial IV (07:54)
[2024-03-18] MEDS: Ondansetron 4 MG/2 ML Vial IV ×2 (07:55→08:34)
[2024-03-18 08:09] LABS: Absolute Lymphocyte Count 1.28 X10^3/uL (0.83-4.51); Absolute Neutrophil Count 11.4 X10^3/uL (2.0-7.7); Basophil# 0.07 X10^3/uL; Basophil% 0.5 % (0-1); Eosinophil# 0.08 X10^3/uL; Eosinophils% 0.6 % (0-5); Hemoglobin 17.7 g/dL (13.0-16.5); Lymphocyte # 1.28 X10^3/ul (0.83-4.51); Lymphocyte % 9.1 % (19-41); Mean Corp Hgb Conc 34.7 g/dL (32-36); Mean Corpuscular Hgb 35.3 pg (27.0-32.0); Mean Corpuscular Volume 101.8 fL (80-94); Mean Platelet Vol. 10.4 fl (6.2-12.0); Monocyte# 1.12 X10^3/uL; NRBC Flagged by Analyzer 0 % (0-5); Neutrophil # 11.42 X10^3/uL (2.7-7.7); Neutrophil % 81.4 % (47-70); Platelet Count 185 K/mm3 (150-450); RBC Distribution Width CV 13.1 % (11.6-14.6); RBC Distribution Width SD 49.8 fl (35.1-43.9); Red Blood Count 5.01 M/mm3 (4.6-6.2)
[2024-03-18 08:36] LABS: Bacteria 0 SEEN /hpf (None Seen); Mucous, Urine 0 SEEN /hpf (<or=2+); White Blood Cells 0 SEEN /hpf (0-5)
[2024-03-18 08:39] LABS: AST(SGOT) 74 U/L (15-37); Alanine Aminotransfer ALT/SGPT 52 U/L (16-61); Albumin, Serum 3.9 g/dL (3.2-5.0); Alkaline Phosphatase 79 U/L (45-117); Anion Gap 6 (5-15); BUN 19 mg/dL (7-18); BUN/Creat Ratio 11.1 RATIO (10-20); Bilirubin, Direct < 0.05 mg/dL (0.00-0.30); Calcium,Total 9.7 mg/dL (8.5-10.1); Chloride 100 mmol/L (98-107); Creatinine, Serum 1.71 mg/dL (0.70-1.30); EST Glomerular Filtration Rate 42 mL/min (>60); Est Glom Filt Rate - Afr Amer 51 mL/min (>60); Estimated Creatinine Clearance 50.19 ml/min; Globulin 4.4 g/dL (2.2-4.2); Glucose 153 mg/dL (74-106); Lipase 106 U/L (13-75); Potassium 5.9 mmol/L (3.5-5.1); Protein, Total 8.3 g/dL (6.4-8.2); Sodium Level 131 mmol/L (136-145)
[2024-03-18 08:45] LABS: Color, Urine Yellow (Yellow); Glucose, Dipstick 100 mg/dl (Normal); Ketone-Dipstick Negative (Negative); Leukocyte Esterase-Dipstick Negative /ul (Negative); Nitrite-Dipstick Negative (Negative); Occult Blood-Urine 25 /ul (Negative); Protein-Dipstick 100 mg/dl (Negative); Specific Gravity, Urine 1.015 (1.002-1.030); Urine Bilirubin Dipstick Negative (Negative); Urine Clarity Clear (Clear); Urine Urobilinogen Normal (Normal)
[2024-03-18] MEDS: HYDROmorphone 1 MG/ML Syringe 0.5 MG IV (09:00)
[2024-03-18 09:13] LABS: Red Blood Cells-Urine 0-5 SEEN /hpf (0-5)
[2024-03-18 09:14] LABS: Squamous Epithelial Cells - UA 0-5 SEEN /hpf (0-5)
--- NOTE | 2024-03-18 10:18 | NURSING ---
MED SURG OBS SANTIAGO RIGHT URETEROLITHIASIS
--- NOTE | 2024-03-18 11:58 | PCM.HP.STD ---
HPI - General General Date of Admission: 03/18/24 Date of Service: 03/18/24 Chief Complaint: righty kidney stone HPI Narrative ROSINA CONNORS, is a 68 M who presents with severe right hydronephrosis plan to admit for stone, take to surgery today for a cysto right stent placement. PFSH Home Medications ?Medication ?Instructions ?Recorded ?Last Taken ?Type allopurinol 300 mg tablet 300 mg PO DAILY 01/21/20 Unknown History atorvastatin 10 mg tablet 10 mg PO DAILY 01/21/20 Unknown History docusate sodium 100 mg capsule 200 mg PO BID 01/21/20 Unknown History loratadine 10 mg capsule 10 mg PO DAILY 01/21/20 Unknown History meloxicam 15 mg tablet 15 mg PO DAILY 01/21/20 Unknown History metformin 500 mg tablet 500 mg PO TID 01/21/20 Unknown History cephalexin 500 mg capsule 500 mg PO TID #15 caps 01/22/20 Unknown Rx Allergy/AdvReac Type Severity Reaction Status Date / Time No Known Allergies Allergy Verified 03/18/24 07:07 Social History Smoking Status: Never smoker Vital Signs Vital Signs Vital Signs: 03/18/24 07:07 03/18/24 09:06 03/18/24 10:13 Temperature 96.6 F L 98 F Temperature Source Temporal Pulse Rate 75 91 78 Respiratory Rate 16 19 H 19 H Blood Pressure 158/91 H 178/98 H 152/90 H Blood Pressure Mean 113 124 110 Pulse Ox 99 97 97 Oxygen Delivery Method Room Air Room Air Weight Weight: 101.605 kg Body Mass Index (BMI) 31.2 Physical Exam Const alert and oriented x3 General Appearance: cooperative HEENT normocephalic and head/scalp atraumatic Eyes PERRL and EOMs intact bilaterally Neck supple, no JVD and no carotid bruits Resp normal respiratory effort, normal air movement and clear to auscultation bilaterally Cardio regular rate and no murmurs GI normal to inspection, nondistended, normoactive bowel sounds and soft to palpation Extremity normal capillary refill General Extremity: no tenderness to palpation of joints or extremities; Negative for edema Skin no rashes or lesions noted and no wounds General Skin Exam: no breakdown Neuro CN's II-XII intact bilaterally Psych affect normal Appearance: appropriate Results Lab / Micro Data 03/18/24 08:00 03/18/24 08:00 Labs: Laboratory Results - last 24 hr 03/18/24 08:00: WBC 14.0 H, RBC 5.01, Hgb 17.7 H, Hct 51.0, MCV 101.8 H, MCH 35.3 H, MCHC 34.7, RDW Std Deviation 49.8 H, RDW Coeff of Teresita 13.1, Plt Count 185, MPV 10.4, Immature Gran % (Auto) 0.400, Neut % (Auto) 81.4 H, Lymph % (Auto) 9.1 L, [place] % (Auto) 8.0, Eos % (Auto) 0.6, Baso % (Auto) 0.5, Absolute Neuts (auto) 11.4 H, Absolute Lymphs (auto) 1.28, Nucleated RBC % 0, Sodium 131 L, Potassium 5.9 H, Chloride 100, Carbon Dioxide 25.0, Anion Gap 6, BUN 19 H, Creatinine 1.71 H, Estim Creat Clear Calc 50.19, Est GFR (MDRD) Af Amer 51 L, Est GFR (MDRD) Non-Af 42 L, BUN/Creatinine Ratio 11.1, Glucose 153 H, Calcium 9.7, Total Bilirubin 1.00, Direct Bilirubin < 0.05, AST 74 H, ALT 52, Alkaline Phosphatase 79, Total Protein 8.3 H, Albumin 3.9, Globulin 4.4 H, Lipase 106 H 03/18/24 08:31: Urine Color Yellow, Urine Clarity Clear, Urine pH 6.0, Ur Specific [place] 1.015, Urine Protein 100 H, Urine Glucose (UA) 100 H, Urine Ketones Negative, Urine Occult Blood 25 H, Urine Nitrite Negative, Urine Bilirubin Negative, Urine Urobilinogen Normal, Ur Leukocyte Esterase Negative, Urine RBC 0-5 SEEN, Urine WBC 0 SEEN, Ur Squamous Epith Cells 0-5 SEEN, Urine Bacteria 0 SEEN, Urine Mucus 0 SEEN Imaging Radiology Impression Abdomen/Pelvis CT 03/18/24 07:28 IMPRESSION: Aatp-ca-wfqshhie right hydronephrosis due to a 6.2 mm calculus in the right ureteropelvic junction. Stable bilateral nonobstructive intrarenal calculi. Stable bilateral parapelvic renal cysts more prominent on the right side. Diffuse fatty infiltration of the liver. Electronically Signed: Pan Cardenas MD at 8:59 EDT , Assessment & Plan Assessment/Plan (1) Abdominal pain: (2) Hydronephrosis, right: PLAN: admit cysto right stent today
[2024-03-18 13:03] LABS: Bedside Glucose 145 mg/dL (74-106)
--- NOTE | 2024-03-18 13:40 | PCM.PRE.AN2 ---
ASA Classification* ASA Classification ASA Classification: 2 Assessment & Plan Anesthesia* Anesthesia Assessment Anesthesia Assessment: Discussed sedation and/or anesthesia options, risks, benefits, and alternatives with patient/parents/legal guardian/POA. Questions invited. The patient/parents/legal guardian/POA seems to understand and agrees to proceed with anesthesia plan. Reviewed the physical assessment, medical history, allergy history and patient home medications list prior to surgery/procedure/anesthetic and documented any changes. Performed airway and anesthesia risk assessments. Anesthesia Type Anesthesia Type: MAC History Source History Obtained from:: Patient and Chart Anesthesia Focused Assessment* Temperature: 97.8 F Pulse Rate: 71 Blood Pressure: 122/70 Respiratory Rate: 16 Pulse Ox: 95 Oxygen Delivery Method: Room Air Airway Assessment Mouth opens: >3 cm Mallampati Score: III Teeth Condition: Partial (Upper partial is out.) Neck Range of motion (ROM): Limited ROM (Slight decrease in extension.) Focused Labs Anesthesia Preop lab: CBC WBC 14.0 K/mm3 (4.4-11.0) H 03/18/24 08:00 RBC 5.01 M/mm3 (4.6-6.2) 03/18/24 08:00 Hgb 17.7 g/dL (13.0-16.5) H 03/18/24 08:00 Hct 51.0 % (40-54) 03/18/24 08:00 Plt Count 185 K/mm3 (150-450) 03/18/24 08:00 CHEMISTRY Potassium 5.9 mmol/L (3.5-5.1) H 03/18/24 08:00 Sodium 131 mmol/L (136-145) L 03/18/24 08:00 BUN 19 mg/dL (7-18) H 03/18/24 08:00 Creatinine 1.71 mg/dL (0.70-1.30) H 03/18/24 08:00 Glucose 153 mg/dL (74-106) H 03/18/24 08:00 POC Glucose 145 mg/dL (74-106) H 03/18/24 12:46 COAG Pre-Assessment Diagnosis/Proposed Procedure Planned Operative Procedure(s): Cystoscopy and right stent placement. Anesthesia History Anesthesia History - char filter operator helper: Anesthesia History - char filter operator helper Hx Hospitalization No 01/22/20 01:11 Any Problems With Anesthesia No 03/18/24 12:19 Cholinesterase deficiency No 03/18/24 12:19 You/Your Family Experience No 03/18/24 12:19 fever (hyperthermia) with Relationship Recent Exposure to Contagious No 03/18/24 12:19 Disease Does patient have nerve No 03/18/24 12:19 stimulator Patient instructed to have device shut off --Does patient have Pacemaker No 03/18/24 12:19 or ICD? When Was Last Pacemaker Check QUESTION #4 FULL TEXT: You/Your Family Experience fever (hyperthermia) with Anesthesia Last Oral Intake Last Oral intake: Last Oral Intake NPO since 00:00 03/18/24 12:19 Meds taken in AM with sips of No 03/18/24 12:19 water? Meds patient instructed to take am of surgery PONV PONV - char filter operator helper: PONV - char filter operator helper Female HX of Motion Sickness HX of N/V After Surgery Non-Smoker Duration of Surgery greater than 60 minutes Number of Risk Factors PONV Score Height & Weight Height & Weight: Anesthesia: Height & Weight Height 5 ft 10.87 in 03/18/24 12:34 Weight: 101.6 kg 03/18/24 12:34 Body Mass Index (BMI) 31.3 03/18/24 12:34 Respiratory Assessment Respiratory Assessment - char filter operator helper: Respiratory Tract Infection Hx - char filter operator helper Hx Respiratory Tract Infection No 03/18/24 12:19 STOP Sleep Apnea STOP Sleep Apnea - char filter operator helper: STOP Sleep Apnea - char filter operator helper Hx Hypertension No 03/18/24 12:34 Hx Sleep Apnea Yes 03/18/24 12:34 CPAP Yes 03/18/24 12:34 BIPAP No 03/18/24 12:34 Do you snore loudly (louder than talking or can be heard Do you often feel tired/ fatigued/ sleepy during daytime? Has anyone observed you stop breathing during sleep? STOP Results Positive 03/18/24 12:34 QUESTION #5 FULL TEXT : Do you snore loudly (louder than talking or can be heard through closed doors)? Tobacco Use History Tobacco Use History - char filter operator helper: Tobacco Use History - char filter operator helper Tobacco Use Smoking Status Never smoker 03/18/24 12:34 Hx Tobacco Use No 03/18/24 12:34 Years Smoking Packs Smoked per Day Smoking Cessation Date was within the last 15 years Hx Smoking Cessation Date Hx Smoking Cessation Counseling Hematologic Medial History Hematologic Hx - char filter operator helper: Hematologic Medical Hx - subwarehouse supervisor Hx of Blood Transfusion No 03/18/24 12:34 Hx of Transfusion in last 3 No 03/18/24 12:34 Months Date of Last Transfusion (if within last 3 months) Ever experience any problems No 03/18/24 12:34 with transfusion(s)? Specify any problems Hx of Preganancy in last 3 N/A 03/18/24 12:34 Months Nurse Filling Out Transfusion JDIAL 03/18/24 12:34 & Questions: Date: 03/18/24 03/18/24 12:34 Time: 12:38 03/18/24 12:34 Patient unable to answer at this time (ie. confused, unrespo /Reproduction History /Reproductive History - char filter operator helper: /Reproductive Hx- char filter operator helper Hx Now No 03/18/24 12:19 Gestational Age (in weeks): EDC: Hx Hx Para Hx Section SAB No 03/18/24 12:19 Active Medications Active Medications: Current Medications Generic Name Dose Route Start Last Admin Trade Name Freq PRN Reason Stop Dose Admin Sodium Chloride 1,000 mls @ 250 mls/hr 03/18/24 07:30 03/18/24 12:10 IV 250 mls/hr .Q4H JOELLEN Administration Cefazolin Sodium 2 gm/ Sodium 110 mls @ 150 mls/hr 03/18/24 13:36 Chloride IV 03/18/24 14:19 X1 ONE Sodium Chloride 10 - 40 ml 03/18/24 12:41 0.9% Saline Lock 10 Ml Syringe IV UD PRN SALINE FLUSH PFSH Medical History (Updated 03/18/24 @ 13:[address] French Faustin MD) S/P extracorporeal shock wave therapy Home Medications ?Medication ?Instructions ?Recorded ?Last Taken ?Type allopurinol 300 mg tablet 300 mg PO DAILY 01/21/20 03/17/24 10:00 History 300 mg atorvastatin 10 mg tablet 10 mg PO DAILY 01/21/20 03/17/24 10:00 History 10 mg loratadine 10 mg capsule 10 mg PO DAILY 01/21/20 03/17/24 22:00 History 10 mg meloxicam 15 mg tablet 15 mg PO DAILY 01/21/20 03/17/24 10:00 History 15 mg metformin 500 mg tablet 500 mg PO 4X/DAY 01/21/20 03/17/24 22:00 History 500 mg Allergy/AdvReac Type Severity Reaction Status Date / Time No Known Allergies Allergy Verified 03/18/24 07:07 Surgical History (Updated 03/18/24 @ 13:[address] French Faustin MD) Status post Mohs surgery for basal cell carcinoma History of tonsillectomy S/P cystoscopy with ureteral stent placement Social History Smoking Status: Never smoker Review of Systems (Anesthesia) ROS Narrative System reviewed and no additional complaints, except as documented.
[2024-03-18] MEDS: Cefazolin 2 GM in 0.9% Normal Saline (100mL Bag) 100 ML IV (14:15)
--- NOTE | 2024-03-18 14:37 | DCINST_ITS ---
Discharge Instructions Diet Discharge Diet: No restrictions Activity Discharge Activity: Return to Normal Activity and May Not Drive (while taking narcotic pain medications.) Dressing / Incision Call your doctor if you observe: Fever of 101 or Higher Follow Up Care Please Follow Up With: Francis Figueredo MD When: Call [phone] for an appointment Test Results: Test results from this visit will be discussed in further detail at your follow- up appointment, if applicable. Discharge Plan Admission Admit Date/Time: 03/18/24 12:00 Primary Reason for Your Visit: kidney stone Attending Provider: Francis Figueredo Primary Care Provider: Kita Melendez Discharge Orders/Prescriptions Prescriptions: New ciprofloxacin HCl [Cipro] 500 mg tablet 500 mg PO BID Qty: 6 0RF Continued metformin 500 MG tablet 500 mg PO 4X/DAY atorvastatin 10 MG tablet 10 mg PO DAILY Rx Instructions: TAKES IN AM meloxicam 15 MG tablet 15 mg PO DAILY allopurinol 300 MG tablet 300 mg PO DAILY loratadine 10 MG capsule 10 mg PO DAILY Referrals / Follow Up: Francis Figueredo MD [Med Staff - Active Staff] - Kita Melendez MD [Primary Care Provider] - Disposition Disposition (needs filled in before D/C Order can be placed): Home, Self Care
--- NOTE | 2024-03-18 14:37 | OP.PCM_ITS ---
Report of Operation Date of Procedure: 03/18/24 Pre-Operative Diagnosis: Obstructing right ureteral calculi and severe hydronep hrosis Post-Operative Diagnosis: Same Surgery/Procedure Performed:: Cystoscopy, right retrograde pyelogram and right stent placement Description of Surgical Findings:: Patient was taken back to the operating room after induction of general anesthesia, the patient was placed in dorsolithotomy position. The urethra and genitals were prepped and draped in usual sterile fashion. Using a 21 [place] rigid cystourethroscope the entire length of the urethra was normal then went into the bladder. Identified the trigone the left and right ureteral orifice. I then cannulated the right ureter orifice and advanced a wire up into the kidney. I then backloaded a 5 [place] open ended catheter over the wire and injected contrast to delineate the anatomy. After the retrograde was performed I then used fluoroscopic images and guidance to advanced a wire up into the kidney and over the 0.038 glidewire I advanced a 6 [place] by 26 cm double pigtail stent. I then pulled the 0.038 Glidewire off and the stent coiled in the kidney bladder good position. The bladder was then drained. We confirmed the position of the stent by fluoroscopy. Patient anesthetic was reversed and was taken back to the PACU in good condition. Surgeon: Francis Figueredo Type of Anesthesia: General Drains: right stent Admit VTE Documentation VTE Present on Admission: No VTE Mechan Device Prophylaxis: SCD's VTE Pharm Prophylaxis ordered?: No
--- NOTE | 2024-03-18 14:43 | PCM.POST.ANE ---
Anesthesia: Postop Eval I Current Vital Signs Temperature: 97.9 F Pulse Rate: 77 Blood Pressure: 99/58 Respiratory Rate: 16 Pulse Ox: 99 Oxygen Delivery Method: Venturi Mask Oxygen Flow Rate (L/min): 6 Assessment Airway patent: Yes Spontaneous unlabored respirations: Yes Mental status: Awake and Calm nausea: No Vomiting: No Anesthesia Complication: No Fluid Hydration Crystalloid volume administer (ml): 500 Total IV fluid infused: 500 Progress Note Anesthesia document: Postop Eval 1 completed: Yes
--- NOTE | 2024-03-18 14:44 | POSTOPAN2_ITS ---
Anesthesia Postop Eval I Sum Postop Eval Completion status Anesthesia document: Postop Eval 1 completed: Yes Anesthesia Postop Eval I Summary Anesthesia Postop Eval I Summary: Anesthesia Postop Eval I: Assessment Summary Airway patent Yes 03/18/24 14:44 TEA [email or web address] Spontaneous unlabored Yes 03/18/24 14:44 TEA [email or web address].MDOT respirations Mental status Awake,Calm 03/18/24 14:44 TEA BLENDER.MDOT nausea No 03/18/24 14:44 TEA BLENDER.MDOT Vomiting No 03/18/24 14:44 TEA [email or web address].MDOT Anesthesia Postop Eval I: Fluid Summary Crystalloid volume administer 500 03/18/24 14:44 TEA BLENDER.MDOT (ml) Colloids volume administered ( ml) Blood Product volume administered (ml) Total IV fluid infused 500 03/18/24 14:44 TEA BLENDER.MDOT Anesthesia Postop Eval I: Summary Notes Anesthesia Complication No 03/18/24 14:44 TEA BLENDER.MDOT Anesthesia Complication Comment: Post-operative progress note Anesthesia: Postop Eval II Evaluation Mental status: Awake and Calm Pain Level: 0 nausea: No Vomiting: No Complications Anesthesia Complication: No
--- NOTE | 2024-03-18 14:44 | PCM.POSTANE2 ---
Anesthesia Postop Eval I Sum Postop Eval Completion status Anesthesia document: Postop Eval 1 completed: Yes Anesthesia Postop Eval I Summary Anesthesia Postop Eval I Summary: Anesthesia Postop Eval I: Assessment Summary Airway patent Yes 03/18/24 14:44 INTERIOR DESIGN INSTRUCTOR.MDOT Spontaneous unlabored Yes 03/18/24 14:44 INTERIOR DESIGN INSTRUCTOR.MDOT respirations Mental status Awake,Calm 03/18/24 14:44 INTERIOR DESIGN INSTRUCTOR.MDOT nausea No 03/18/24 14:44 INTERIOR DESIGN INSTRUCTOR.MDOT Vomiting No 03/18/24 14:44 INTERIOR DESIGN INSTRUCTOR.MDOT Anesthesia Postop Eval I: Fluid Summary Crystalloid volume administer 500 03/18/24 14:44 INTERIOR DESIGN INSTRUCTOR.MDOT (ml) Colloids volume administered ( ml) Blood Product volume administered (ml) Total IV fluid infused 500 03/18/24 14:44 INTERIOR DESIGN INSTRUCTOR.MDOT Anesthesia Postop Eval I: Summary Notes Anesthesia Complication No 03/18/24 14:44 INTERIOR DESIGN INSTRUCTOR.MDOT Anesthesia Complication Comment: Post-operative progress note Anesthesia: Postop Eval II Evaluation Mental status: Awake and Calm Pain Level: 0 nausea: No Vomiting: No Complications Anesthesia Complication: No
--- NOTE | 2024-03-18 15:08 | SUR.PHASEI ---
called per pt request to update her that surgery was complete and he was in PACU, pt spoke to on phone and updated her on plan of care.
[2024-03-18 15:32] LABS: Bedside Glucose 131 mg/dL (74-106)
--- NOTE | 2024-03-18 15:44 | POSTOPAN2_ITS ---
Anesthesia Postop Eval I Sum Postop Eval Completion status Anesthesia document: Postop Eval 1 completed: Yes Anesthesia Postop Eval I Summary Anesthesia Postop Eval I Summary: Anesthesia Postop Eval I: Assessment Summary Airway patent Yes 03/18/24 14:44 PIPER [email or web address] Spontaneous unlabored Yes 03/18/24 14:44 PIPER INSTALLER.MDOT respirations Mental status Awake,Calm 03/18/24 14:44 PIPER INSTALLER.MDOT nausea No 03/18/24 14:44 PIPER INSTALLER.MDOT Vomiting No 03/18/24 14:44 PIPER INSTALLER.MDOT Anesthesia Postop Eval I: Fluid Summary Crystalloid volume administer 500 03/18/24 14:44 PIPER INSTALLER.MDOT (ml) Colloids volume administered ( ml) Blood Product volume administered (ml) Total IV fluid infused 500 03/18/24 14:44 PIPER INSTALLER.MDOT Anesthesia Postop Eval I: Summary Notes Anesthesia Complication No 03/18/24 14:44 PIPER INSTALLER.MDOT Anesthesia Complication Comment: Post-operative progress note Anesthesia: Postop Eval II Evaluation Mental status: Awake and Calm Pain Level: 1 nausea: No Vomiting: No Complications Anesthesia Complication: No
--- NOTE | 2024-03-18 15:44 | PCM.POSTANE2 ---
Anesthesia Postop Eval I Sum Postop Eval Completion status Anesthesia document: Postop Eval 1 completed: Yes Anesthesia Postop Eval I Summary Anesthesia Postop Eval I Summary: Anesthesia Postop Eval I: Assessment Summary Airway patent Yes 03/18/24 14:44 PHARMACEUTICAL SERVICE REPRESENTATIVE.MDOT Spontaneous unlabored Yes 03/18/24 14:44 PHARMACEUTICAL SERVICE REPRESENTATIVE.MDOT respirations Mental status Awake,Calm 03/18/24 14:44 PHARMACEUTICAL SERVICE REPRESENTATIVE.MDOT nausea No 03/18/24 14:44 PHARMACEUTICAL SERVICE REPRESENTATIVE.MDOT Vomiting No 03/18/24 14:44 PHARMACEUTICAL SERVICE REPRESENTATIVE.MDOT Anesthesia Postop Eval I: Fluid Summary Crystalloid volume administer 500 03/18/24 14:44 PHARMACEUTICAL SERVICE REPRESENTATIVE.MDOT (ml) Colloids volume administered ( ml) Blood Product volume administered (ml) Total IV fluid infused 500 03/18/24 14:44 PHARMACEUTICAL SERVICE REPRESENTATIVE.MDOT Anesthesia Postop Eval I: Summary Notes Anesthesia Complication No 03/18/24 14:44 PHARMACEUTICAL SERVICE REPRESENTATIVE.MDOT Anesthesia Complication Comment: Post-operative progress note Anesthesia: Postop Eval II Evaluation Mental status: Awake and Calm Pain Level: 1 nausea: No Vomiting: No Complications Anesthesia Complication: No
[2024-03-18] MEDS: Loratadine 10 MG Tablet PO (16:44)
[2024-03-18] MEDS: metFORMIN HCl 500 MG Tablet PO ×2 (16:44→22:11)
[2024-03-18] MEDS: Ciprofloxacin 400 MG/200 ML BAG 200 MG IV (22:11)
[2024-03-18 22:41] LABS: Bedside Glucose 163 mg/dL (74-106)
[2024-03-19] MEDS: 0.9% Normal Saline (1000mL) 1,000 ML 250 ML IV (02:31)
[2024-03-19 02:33] VITALS: BP 119/61; PULSE 70; RESP 15; TEMP 36.6; O2SAT 94
[2024-03-19 07:51] VITALS: BP 129/74; PULSE 63; RESP 16; TEMP 36.6; O2SAT 97
--- NOTE | 2024-03-19 07:56 | DS.PCM_ITS ---
Providers Date of Admission: 03/18/24 Primary Care Physician: Dr. Kita Melendez MD Reason For Visit: RIGHT URETEROLITHIASIS Diagnosis Discharge Diagnosis (1) Abdominal pain: Status: Acute Code(s): R10.9 - Unspecified abdominal pain (2) Hydronephrosis, right: Status: Acute Code(s): N13.30 - Unspecified hydronephrosis Plan: admit cysto right stent today Medications at Discharge Home Medications allopurinol 300 mg tablet 300 mg PO DAILY 01/21/20 atorvastatin 10 mg tablet 10 mg PO DAILY 01/21/20 loratadine 10 mg capsule 10 mg PO DAILY 01/21/20 meloxicam 15 mg tablet 15 mg PO DAILY 01/21/20 metformin 500 mg tablet 500 mg PO 4X/DAY 01/21/20 ciprofloxacin HCl 500 mg tablet (Cipro) 500 mg PO BID #6 tabs 03/18/24 Hospital Course Summary of Care Provided Minutes Spent on Discharge: 20 Hospital Course: Patient was admitted with obstructing kidney stones in the right side severe hydronephrosis underwent cystoscopy and stent placement he will go home today with a few days of antibiotics my office will call him with instructions to get him set up for outpatient surgery for the stones Weight / BMI Weight Weight: 101.6 kg Body Mass Index (BMI) 31.3 ABG / Lab / Microbiology Data 03/18/24 08:00 03/18/24 08:00 Laboratory: Laboratory Results - last 24 hr 03/18/24 08:00: WBC 14.0 H, RBC 5.01, Hgb 17.7 H, Hct 51.0, MCV 101.8 H, MCH 35.3 H, MCHC 34.7, RDW Std Deviation 49.8 H, RDW Coeff of Teresita 13.1, Plt Count 185, MPV 10.4, Immature Gran % (Auto) 0.400, Neut % (Auto) 81.4 H, Lymph % (Auto) 9.1 L, [place] % (Auto) 8.0, Eos % (Auto) 0.6, Baso % (Auto) 0.5, Absolute Neuts (auto) 11.4 H, Absolute Lymphs (auto) 1.28, Nucleated RBC % 0, Sodium 131 L, Potassium 5.9 H, Chloride 100, Carbon Dioxide 25.0, Anion Gap 6, BUN 19 H, C reatinine 1.71 H, Estim Creat Clear Calc 50.19, Est GFR (MDRD) Af Amer 51 L, Est GFR (MDRD) Non-Af 42 L, BUN/Creatinine Ratio 11.1, Glucose 153 H, Calcium 9.7, Total Bilirubin 1.00, Direct Bilirubin < 0.05, AST 74 H, ALT 52, Alkaline Phosphatase 79, Total Protein 8.3 H, Albumin 3.9, Globulin 4.4 H, Lipase 106 H 03/18/24 08:31: Urine Color Yellow, Urine Clarity Clear, Urine pH 6.0, Ur Specific [place] 1.015, Urine Protein 100 H, Urine Glucose (UA) 100 H, Urine Ketones Negative, Urine Occult Blood 25 H, Urine Nitrite Negative, Urine Bilirubin Negative, Urine Urobilinogen Normal, Ur Leukocyte Esterase Negative, Urine RBC 0-5 SEEN, Urine WBC 0 SEEN, Ur Squamous Epith Cells 0-5 SEEN, Urine Bacteria 0 SEEN, Urine Mucus 0 SEEN 03/18/24 12:46: POC Glucose 145 H 03/18/24 15:12: POC Glucose 131 H 03/18/24 22:21: POC Glucose 163 H Radiography Diagnostic Testing: Radiology Impression Abdomen/Pelvis CT 03/18/24 07:28 IMPRESSION: [id number] right hydronephrosis due to a 6.2 mm calculus in the right ureteropelvic junction. Stable bilateral nonobstructive intrarenal calculi. Stable bilateral parapelvic renal cysts more prominent on the right side. Diffuse fatty infiltration of the liver. Electronically Signed: Pan Cardenas MD at 8:59 EDT , D/C Instructions Discharge Diet: No restrictions Call your doctor if you observe: Fever of 101 or Higher Please Follow Up With: Francis Figueredo MD When: Call [phone] for an appointment Meaningful Use Info Meaningful Use Meaningful Use Diagnoses (Choose all that apply): None applicable Ischemic Stroke Statin Dosing Therapy Reference: STATIN DOSE THERAPY REFERENCE: * Patients > 75 years receive moderate or high dose statin therapy. * Patients 75 years or YOUNGER should receive HIGH intensity statin dose unless contraindicated. You will be required to document reason for non-treatment if statin daily dose does not meet guidelines. HIGH DOSE STATIN THERAPY DAILY Atorvastatin > than or = to 40 mg Rosuvastatin > than or = to 20 mg Amlodipine + Atorvastatin > than or = to 2.5/40 mg Ezetimibe + Simvastatin 10/80 mg Simvastatin 80mg Discharge Plan Admission Admit Date/Time: 03/18/24 12:00 Primary Reason for Your Visit: kidney stone Attending Provider: Francis Figueredo Primary Care Provider: Kita Melendez Discharge Orders/Prescriptions Prescriptions: New ciprofloxacin HCl [Cipro] 500 mg tablet 500 mg PO BID Qty: 6 0RF Continued metformin 500 MG tablet 500 mg PO 4X/DAY atorvastatin 10 MG tablet 10 mg PO DAILY Rx Instructions: TAKES IN AM meloxicam 15 MG tablet 15 mg PO DAILY allopurinol 300 MG tablet 300 mg PO DAILY loratadine 10 MG capsule 10 mg PO DAILY Referrals / Follow Up: Francis Figueredo MD [Med Staff - Active Staff] - Kita Melendez MD [Primary Care Provider] - Disposition Disposition (needs filled in before D/C Order can be placed): Home, Self Care
[2024-03-19] MEDS: metFORMIN HCl 500 MG Tablet PO (08:00)
[2024-03-19] MEDS: Atorvastatin Calcium 10 MG Tablet PO (09:14)
[2024-03-19] MEDS: Ciprofloxacin 400 MG/200 ML BAG 200 MG IV (09:14)
[2024-03-19] MEDS: Allopurinol 300 MG Tablet PO (09:14)
[2024-03-19] MEDS: Loratadine 10 MG Tablet PO (09:14)
[2024-03-19] MEDS: Meloxicam 15 MG Tablet PO (09:19)
--- NOTE | 2024-03-19 09:25 | CASEMGMT ---
Order for DC placed. RN CM to pt room at this time. Pt states that he is independent and that he lives at home with his . Pt denies needs moving forward. Pt states that he does not need HHC or OP Tx set up of any sort. Pt states that his will be picking him up from the hospital today and denies further questions or concerns at this time.
== END 2024-03-19 10:53 | disposition home or self-care (01) ==
LOC: ED 10:09 → MS3 12:02
PROVIDERS: Admitting Provider Urology; Emergency Provider Emergency Medicine; PCP Internal Medicine; Visit Provider Urology
PROC: (CPT 52332; principal; 2024-03-18 13:50)
DX: N13.2 Hydronephrosis with renal and ureteral calculous obstruction (principal)
CPT/HCPCS: 52332; 00910; 74176; 76000; 80048; 80076; 81001; 82962; 83690; 85025; 96361; 96365; 96366; 96375; 96376; 99221; 99284; J7030; A4216; C1769; C2617; G0378; J0744; J2405

== ENCOUNTER → 2024-03-26 | Outpatient (CLI) | payer MEDICARE, SELFPAY ==
[2024-03-26 08:36] LABS: Hematocrit 45.6 % (40-54); Hemoglobin 15.5 g/dL (13.0-16.5); Mean Corpuscular Hgb 34.7 pg (27.0-32.0); Mean Platelet Vol. 9.7 fl (6.2-12.0); Platelet Count 238 K/mm3 (150-450); RBC Distribution Width SD 49.2 fl (35.1-43.9); Red Blood Count 4.47 M/mm3 (4.6-6.2)
[2024-03-26 09:06] LABS: Anion Gap 7 (5-15); BUN 16 mg/dL (7-18); Calcium,Total 9.7 mg/dL (8.5-10.1); Chloride 102 mmol/L (98-107); Creatinine, Serum 1.33 mg/dL (0.70-1.30); EST Glomerular Filtration Rate 57 mL/min (>60); Est Glom Filt Rate - Afr Amer 69 mL/min (>60); Glucose 239 mg/dL (74-106); Potassium 4.3 mmol/L (3.5-5.1); Sodium Level 136 mmol/L (136-145)
== END | disposition home or self-care (01) ==
LOC: LAB 08:20
PROVIDERS: PCP Internal Medicine; Referring Provider Urology; Visit Provider Urology
DX: Z01.812 Encounter for preprocedural laboratory examination (principal)
CPT/HCPCS: 36415; 80048; 85027

== ENCOUNTER → 2024-06-13 | Outpatient (CLI) | payer MEDICARE, SELFPAY ==
--- NOTE | 2024-06-13 15:31 | CT_ITS ---
STUDY: CT ABDOMEN AND PELVIS WITHOUT CONTRAST REASON FOR EXAM: Male, 69 years old. CALCULUS OF KIDNEY/ HYDRONEPHROSIS RADIATION DOSAGE (If Supplied By Facility): CTDIvol = ( 18.54 ) mGy, DLP = ( 1004.97 ) mGycm TECHNIQUE: Transaxial images were obtained from the dome of the diaphragm to the symphysis pubis without oral contrast, and without intravenous contrast. Sagittal and coronal images were reconstructed. Individualized dose optimization techniques were used for this CT. COMPARISON: March 18, 2024 FINDINGS: There are chronic interstitial fibrotic changes of the lung bases. There are coronary artery calcifications. There is decreased attenuation of the liver consistent with steatosis. There is a small gallstone in contracted gallbladder. Normal spleen. Normal pancreas. Normal bilateral adrenal glands. There are stable cysts and parapelvic cysts of the kidneys. There is a 0.2 cm stone at the posterior aspect of the right kidney. There is moderate right hydronephrosis with 0.3 and 0.4 cm stones at the ureteropelvic junction. There is mild left hydronephrosis. There are 0.2 and 0.3 cm stones of the left kidney. Normal visualized stomach. Normal small intestine. There are multiple colonic diverticula consistent with diverticulosis. The appendix is visualized and appears normal. There is diffuse atherosclerotic calcification of the abdominal aorta, without a demonstrated aneurysm. Normal inferior vena cava. Normal retroperitoneum. Normal urinary bladder. There is no free fluid in the abdomen or pelvis. Normal abdominal wall. There are diffuse degenerative changes of the visualized lumbar spine. CT/Abdomen/Pelvis without Cont IMPRESSION: Bilateral renal stones and right ureteropelvic junction stones. Bilateral hydronephrosis. Colonic diverticulosis. No obstruction. Fatty infiltration of the liver. Small gallstone. Electronically Signed: Devyn Baca MD at 9:47 EST ,
== END | disposition home or self-care (01) ==
LOC: CT 15:30
PROVIDERS: PCP Internal Medicine; Referring Provider Urology; Visit Provider Urology
DX: N20.0 Calculus of kidney (principal); N13.39 Other hydronephrosis
CPT/HCPCS: 74176

== ENCOUNTER → 2025-06-02 | Outpatient (CLI) | payer MEDICARE, SELFPAY ==
[2025-06-02 10:36] LABS: PSA,Total - Annual Screen 0.86 ng/mL (0.02-4.00)
== END | disposition home or self-care (01) ==
LOC: LAB 08:21
PROVIDERS: PCP Internal Medicine; Referring Provider Urology; Visit Provider Urology
DX: Z12.5 Encounter for screening for malignant neoplasm of prostate (principal)
CPT/HCPCS: 36415; 84153; G0103